=== PATIENT | male | born 1965 | race Caucasian/White ===

== ENCOUNTER 2017-02-23 10:54 | Inpatient (IN) | payer OTHER ==
[2017-02-23 11:29] VITALS: BMI 25.0
--- NOTE | 2017-02-23 11:55 | HP ---
CIWA Score - CIWA Score Nausea/Vomitin Muscle Tremors: 3 Anxiety: 4-Mod. Anxious/Guarded Agitation: 1-Slight > Activity Paroxysmal Sweats: 1-Minimal Palms Moist Orientation: 2-Disoriented Date<2 days Tacttile Disturbances: 0-None Auditory Disturbances: 1-Very Mild Visual Disturbances: 1-Very Mild Sensitivity Headache: 1-Very Mild CIWA-Ar Total Score: 17 Admission ROS BHS - HPI Chief Complaint: I drink too much, I need to change, I spend too much money Allergies/Adverse Reactions: Allergies Allergy/AdvReac Type Severity Reaction Status Date / Time No Known Allergies Allergy Verified 02/23/17 11:46 History of Present Illness: 51 yo gentleman here for detox from alcohol - states first time ever in detox - he is from [place] here since 1979. Denies seizures but occasional black outs. Homeless. Exam Limitations: Clinical Condition - Ebola screening Have you traveled outside of the country in the last 21 days: No Have you had contact with anyone from an Ebola affected area: No Have you been sick,other than usual withdrawal symptoms: No Do you have a fever: No - Review of Systems Constitutional: Loss of Appetite, Malaise, Night Sweats, Changes in sleep, Weakness EENT: reports: No Symptoms Reported Respiratory: reports: Cough Cardiac: reports: No Symptoms Reported GI: reports: Nausea, Indigestion : reports: Frequency Musculoskeletal: reports: No Symptoms Reported Integumentary: reports: Dryness Neuro: reports: Headache Endocrine: reports: No Symptoms Reported Hematology: reports: No Symptoms Reported Psychiatric: reports: Judgement Intact, Mood/Affect Appropiate Other Systems: Reviewed and Negative Patient History - Patient Medical History Hx Anemia: No Hx Asthma: No Hx Chronic Obstructive Pulmonary Disease (COPD): No Hx Cancer: No Hx Cardiac Disorders: No Hx Congestive Heart Failure: No Hx Hypertension: No Hx Hypercholesterolemia: No Hx Pacemaker: No HX Cerebrovascular Accident: No Hx Seizures: No Hx Dementia: No Hx Diabetes: No Hx Gastrointestinal Disorders: No Hx Liver Disease: No Hx Genitourinary Disorders: No Hx Sexually Transmitted Disorders: No Hx Renal Disease (ESRD): No Hx Thyroid Disease: No Hx Human Immunodeficiency Virus (HIV): Yes (on meds, does not know tcells) Hx Hepatitis C: No Hx Depression: No (denies) Hx Suicide Attempt: No (denies) Hx Bipolar Disorder: No Hx Schizophrenia: No (denies) - Patient Surgical History Past Surgical History: No - PPD History Previous Implant?: Yes Documented Results: Negative w/o proof PPD to be Administered?: Yes - Reproductive History Patient is a Female of Child Bearing Age (11 -55 yrs old): No (male) - Smoking Cessation Smoking history: Current every day smoker Have you smoked in the past 12 months: Yes Aproximately how many cigarettes per day: 40 Initiated information on smoking cessation: Yes 'Breaking Loose' booklet given: 02/23/17 (give on floor) - Substance & Tx. History Hx Alcohol Use: Yes Hx Substance Use: Yes Substance Use Type: Alcohol, Marijuana Hx Substance Use Treatment: Yes (states NEVER) - Substances Abused Alcohol Route: Oral Frequency: Daily Amount used: 2 pints, 12 beers 24 oz Age of first use: 12 Date of Last Use: 02/22/17 Marijuana/Hashish Route: Smoking Frequency: Daily Amount used: 2 joints Age of first use: 14 Date of Last Use: 02/22/17 Cocaine Route: Inhalation Frequency: 3-6 times per week Amount used: $50 Age of first use: 15 Date of Last Use: 02/21/17 Family Disease History - Family Disease History Family Disease History: Diabetes: Mother (, ), Heart Disease: Father ( living in [place]), Other: Father, Mother, Brother (two in [place]), Sister (two in [place]) Admission Physical Exam [facility] - Vital Signs Vital Signs: Vital Signs - 24 hr 02/23/17 11:23 Temperature 97.2 F L Pulse Rate 66 Respiratory 20 Rate Blood Pressure 114/65 - Physical General Appearance: Yes: Nourished, Appropriately Dressed, Disheveled, Mild Distress HEENTM: Yes: Hearing grossly Normal, Normocephalic, Normal Voice, Pharynx Normal , Other (eyes 'rheumy') Respiratory: Yes: Normal Breath Sounds, No Respiratory Distress Neck: Yes: No masses,lesions,Nodules, Supple Breast: Yes: Breast Exam Deferred Cardiology: Yes: Regular Rhythm, Regular Rate Abdominal: Yes: Non Tender, Flat Genitourinary: Yes: Frequency Back: Yes: Within Normal Limits, Normal Inspection Musculoskeletal: Yes: full range of Motion, Gait Steady Extremities: Yes: Normal Inspection, Non-Tender Neurological: Yes: Alert, Normal Mood/Affect, Normal Response Integumentary: Yes: Normal Color, Dry, Warm Lymphatic: Yes: Within Normal Limits - Diagnostic (1) Alcohol dependence with uncomplicated withdrawal Current Visit: Yes Status: Chronic (2) Marijuana dependence Current Visit: Yes Status: Chronic (3) HIV (human immunodeficiency virus infection) Current Visit: Yes Status: Chronic (4) Nicotine dependence Current Visit: Yes Status: Chronic Qualifiers: Nicotine product type: cigarettes Substance use status: uncomplicated Qualified Code(s): F17.210 - Nicotine dependence, cigarettes, uncomplicated Cleared for Admission [facility] - Detox or Rehab [facility] Level of Care: Medically Managed Detox Regimen/Protocol: Librium [facility] Breath Alcohol Content Breath Alcohol Content: 0 Urine Drug Screen - Results Drug Screen Negative: No Urine Drug Screen Results: NOLVIA-Cocaine
[2017-02-23] MEDS ORDERED: IBUPROFEN 400 MG TABLET (FP) PO PRN (12:06)
[2017-02-23] MEDS ORDERED: guaiFENesin/D-METHORPHAN HB 10 ML UNIT-DOSE CUPS PO PRN (12:06)
[2017-02-23] MEDS ORDERED: MENTHOL/PHENOL 1 EACH UD MM PRN (12:06)
[2017-02-23] MEDS ORDERED: NICOTINE POLACRILEX 4 MG GUM BUC PRN (12:06)
[2017-02-23] MEDS ORDERED: MAGNESIUM HYDROX 2400MG/30ML ORAL SUSPENSION 30 ML CUP PO PRN (12:06)
[2017-02-23] MEDS ORDERED: chlordiazePOXIDE HCL 25 MG CAPSULE PO PRN (12:06)
[2017-02-23] MEDS ORDERED: P-EPHED 60MG/TRIPROLIDI 2.5MG TABLET PO PRN (12:06)
[2017-02-23] MEDS ORDERED: ACETAMINOPHEN 325 MG TABLET (FP) PO PRN (12:06)
[2017-02-23] MEDS ORDERED: MAGNESIUM CITRATE 300 ML BOTTLE PO PRN (12:06)
[2017-02-23] MEDS ORDERED: MAG HYDROX/AL HYDROX/SIMETH 30 ML UNIT-DOSE CUP PO PRN (12:06)
[2017-02-23] MEDS ORDERED: LOPERAMIDE HCL 2 MG CAPSULE PO PRN (12:06)
[2017-02-23] MEDS ORDERED: hydrOXYzine PAMOATE 50 MG CAPSULE (FP) PO PRN (12:06)
[2017-02-23] MEDS ORDERED: PATIENT'S OWN MEDICATION (NON-FORMULARY) (Efavirenz/Emtricitab/Tenofovir 1 TAB) PO SCH (12:15)
[2017-02-23] MEDS ORDERED: chlordiazePOXIDE HCL 25 MG CAPSULE PO ONE (13:15)
[2017-02-23] MEDS ORDERED: EFAVIRENZ 600 MG TABLET PO ONE (13:30)
[2017-02-23] MEDS ORDERED: EMTRICITABINE 200MG/TENOFOVIR 300MG PO ONE (13:30)
[2017-02-23] MEDS: NICOTINE 21 MG/24 HOURS TOPICAL PATCH TD SCH (14:52)
[2017-02-23 15:29] LABS: URINE APPEARANCE CLEAR; URINE BILIRUBIN NEGATIVE (NEGATIVE); URINE BLOOD NEGATIVE (NEGATIVE); URINE COLOR YELLOW; URINE GLUCOSE (UA) NEGATIVE (NEGATIVE); URINE KETONE NEGATIVE (NEGATIVE); URINE LEUK ESTERASE NEGATIVE (NEGATIVE); URINE NITRITE NEGATIVE (NEGATIVE); URINE PROTEIN NEGATIVE (NEGATIVE); URINE UROBILINOGEN NEGATIVE mg/dL (0.2-1.0)
[2017-02-23] MEDS: chlordiazePOXIDE HCL 25 MG CAPSULE PO SCH ×2 (18:14→22:15)
[2017-02-23 19:21] LABS: URINE LEUK ESTERASE Negative (NEGATIVE)
[2017-02-23] MEDS: THIAMINE HCL 100 MG TABLET (FP) PO SCH (22:15)
[2017-02-24] MEDS: chlordiazePOXIDE HCL 25 MG CAPSULE PO SCH ×4 (06:03→22:32)
[2017-02-24] MEDS ORDERED: EMTRICITABINE 200MG/TENOFOVIR 300MG PO SCH (10:00)
[2017-02-24] MEDS ORDERED: EFAVIRENZ 600 MG TABLET PO SCH (10:00)
[2017-02-24] MEDS: PRENATAL VITAMINS W/ FOLIC ACID TABLET (FP) PO SCH (10:11)
[2017-02-24] MEDS: NICOTINE 21 MG/24 HOURS TOPICAL PATCH TD SCH (10:13)
--- NOTE | 2017-02-24 10:23 | PN ---
S CIWA - CIWA Score Nausea/Vomitin-Mild Nausea/No Vomiting Muscle Tremors: 4-Moderate,w/Arms Extend Anxiety: 3 Agitation: 3 Paroxysmal Sweats: 1-Minimal Palms Moist Orientation: 0-Oriented Tacttile Disturbances: 0-None Auditory Disturbances: 0-None Visual Disturbances: 0-None Headache: 0-None Present CIWA-Ar Total Score: 12 BHS Progress Note (SOAP) Subjective: nausea tremor anxiety sweat Objective: 02/24/17 10:22 Vital Signs Temperature 97.9 F 02/24/17 06:00 Pulse Rate 66 02/24/17 06:00 Respiratory Rate 16 02/24/17 06:00 Blood Pressure 116/73 02/24/17 06:00 O2 Sat by Pulse Oximetry (%) Laboratory Last Values Urine Color Yellow 02/23/17 15:13 Urine Appearance Clear 02/23/17 15:13 Urine pH 5.0 (5.0-8.0) 02/23/17 15:13 Ur Specific [place] 1.024 (1.001-1.035) 02/23/17 15:13 Urine Protein Negative (NEGATIVE) 02/23/17 15:13 Urine Glucose (UA) Negative (NEGATIVE) 02/23/17 15:13 Urine Ketones Negative (NEGATIVE) 02/23/17 15:13 Urine Blood Negative (NEGATIVE) 02/23/17 15:13 Urine Nitrite Negative (NEGATIVE) 02/23/17 15:13 Urine Bilirubin Negative (NEGATIVE) 02/23/17 15:13 Urine Urobilinogen Negative mg/dL (0.2-1.0) 02/23/17 15:13 Ur Leukocyte Esterase Negative (NEGATIVE) 02/23/17 15:13 lab noted Assessment: 02/24/17 10:22 withdrawal sx Plan: continue detox
--- NOTE | 2017-02-24 10:44 | PN ---
[facility] Progress Note Note: Patient seen at bedside, somewhat drowsy but able to refuse evaluation saying;" no tengo problema de micky mental"
[2017-02-24 10:54] LABS: ALBUMIN 2.8 g/dl (3.4-5.0); ALK PHOS 105 U/L (45-117); ANION GAP 7 (8-16); BILIRUBIN,TOTAL 0.6 mg/dL (0.2-1.0); CALCIUM 7.9 mg/dL (8.5-10.1); CO2 23 mmol/L (21-32); CREATININE 0.8 mg/dL (0.7-1.3); GLUCOSE,RANDOM 82 mg/dL (74-106); SGOT/AST 16 U/L (15-37); SGPT/ALT 19 U/L (12-78); TOT PROT 6.1 g/dl (6.4-8.2)
[2017-02-24 11:32] LABS: MCH 30.9 pg (25.7-33.7); MCHC 31.9 g/dl (32.0-35.9); MEAN CELL VOLUME 96.7 fl (80-96); MEAN PLT VOLUME 8.9 fl (7.5-11.1); PLATELET COUNT 233 K/MM3 (134-434); RDW 12.6 % (11.9-15.9); WHITE BLOOD COUNT 4.9 K/mm3 (4.0-10.0)
[2017-02-24] MEDS: EFAVIRENZ 600 MG TABLET PO SCH (22:32)
[2017-02-24] MEDS: EMTRICITABINE 200MG/TENOFOVIR 300MG PO SCH (22:32)
[2017-02-24] MEDS: THIAMINE HCL 100 MG TABLET (FP) PO SCH (22:32)
[2017-02-25] MEDS: chlordiazePOXIDE HCL 25 MG CAPSULE PO SCH ×2 (05:49→11:25)
--- NOTE | 2017-02-25 10:30 | PN ---
[facility] CIWA - CIWA Score Nausea/Vomitin-No Nausea/No Vomiting Muscle Tremors: 3 Anxiety: 3 Agitation: 4-Moderately Restless Paroxysmal Sweats: 3 Orientation: 0-Oriented Tacttile Disturbances: 0-None Auditory Disturbances: 0-None Visual Disturbances: 0-None Headache: 0-None Present CIWA-Ar Total Score: 13 S Progress Note (SOAP) Subjective: irritable agitation anxiety interrupted sleep sweats Objective: 02/25/17 10:29 Vital Signs Temperature 97.2 F L 02/25/17 06:29 Pulse Rate 77 02/25/17 06:29 Respiratory Rate 18 02/25/17 06:29 Blood Pressure 118/75 02/25/17 06:29 O2 Sat by Pulse Oximetry (%) Laboratory Tests 02/23/17 02/24/17 02/24/17 15:13 07:30 07:30 WBC 4.9 RBC 4.21 Hgb 13.0 Hct 40.8 MCV 96.7 H MCH 30.9 MCHC 31.9 L RDW 12.6 Plt Count 233 MPV 8.9 Sodium 142 Potassium 4.1 Chloride 112 H Carbon Dioxide 23 Anion Gap 7 L BUN 11 Creatinine 0.8 Creat Clearance w eGFR > 60 Random Glucose 82 Calcium 7.9 L Total Bilirubin 0.6 AST 16 ALT 19 Alkaline Phosphatase 105 Total Protein 6.1 L Albumin 2.8 L Urine Color Yellow Urine Appearance Clear Urine pH 5.0 Ur Specific [place] 1.024 Urine Protein Negative Urine Glucose (UA) Negative Urine Ketones Negative Urine Blood Negative Urine Nitrite Negative Urine Bilirubin Negative Urine Urobilinogen Negative Ur Leukocyte Esterase Negative RPR Titer 02/24/17 07:30 WBC RBC Hgb Hct MCV MCH MCHC RDW Plt Count MPV Sodium Potassium Chloride Carbon Dioxide Anion Gap BUN Creatinine Creat Clearance w eGFR Random Glucose Calcium Total Bilirubin AST ALT Alkaline Phosphatase Total Protein Albumin Urine Color Urine Appearance Urine pH Ur Specific [place] Urine Protein Urine Glucose (UA) Urine Ketones Urine Blood Urine Nitrite Urine Bilirubin Urine Urobilinogen Ur Leukocyte Esterase RPR Titer Nonreactive aaox3 lying in bed no acute distress Assessment: 02/25/17 10:30 withdrawal sx Plan: continue detox increase fluids labs pending
[2017-02-25] MEDS: PRENATAL VITAMINS W/ FOLIC ACID TABLET (FP) PO SCH (11:25)
[2017-02-25] MEDS: NICOTINE 21 MG/24 HOURS TOPICAL PATCH TD SCH (11:26)
[2017-02-25] MEDS: chlordiazePOXIDE 5 MG CAPSULE PO SCH ×2 (17:18→22:20)
[2017-02-25] MEDS: THIAMINE HCL 100 MG TABLET (FP) PO SCH (22:20)
[2017-02-25] MEDS: EMTRICITABINE 200MG/TENOFOVIR 300MG PO SCH (22:20)
[2017-02-25] MEDS: EFAVIRENZ 600 MG TABLET PO SCH (22:20)
--- NOTE | 2017-02-26 01:57 | EKG ---
Test Reason : Blood Pressure : / mmHG Vent. Rate : 067 BPM Atrial Rate : 067 BPM P-R Int : 130 ms QRS Dur : 078 ms QT Int : 414 ms P-R-T Axes : -13 037 043 degrees QTc Int : 437 ms NORMAL SINUS RHYTHM NORMAL ECG NO PREVIOUS ECGS AVAILABLE Confirmed by CHELI CALVO MD ([id number]) on 02/26/2017 1:56:40 AM Referred By: Confirmed By:CHELI CALVO MD
[2017-02-26] MEDS: chlordiazePOXIDE 5 MG CAPSULE PO SCH ×2 (06:47→10:12)
[2017-02-26] MEDS: NICOTINE 21 MG/24 HOURS TOPICAL PATCH TD SCH (10:12)
[2017-02-26] MEDS: PRENATAL VITAMINS W/ FOLIC ACID TABLET (FP) PO SCH (10:12)
--- NOTE | 2017-02-26 10:14 | PN ---
BHS Progress Note (SOAP) Subjective: sweats shakes interrupted sleep Objective: 02/26/17 10:12 Vital Signs Temperature 97.5 F L 02/26/17 06:16 Pulse Rate 79 02/26/17 06:16 Respiratory Rate 18 02/26/17 06:16 Blood Pressure 131/90 02/26/17 06:16 O2 Sat by Pulse Oximetry (%) aaox3 ambulating no acute distress Assessment: 02/26/17 10:14 withdrawal sx Plan: continue detox increase fluids d/c in am
[2017-02-26 10:25] VITALS: BP 136/96; PULSE 98; TEMP 96.8
--- NOTE | 2017-02-26 10:50 | DS ---
[facility] Detox Discharge Summary Admission Date: 02/23/17 - History Present History: Alcohol Dependence - Physical Exam Results Vital Signs: Vital Signs Temperature 96.8 F L 02/26/17 10:25 Pulse Rate 98 H 02/26/17 10:25 Respiratory Rate 18 02/26/17 10:25 Blood Pressure 136/96 02/26/17 10:25 O2 Sat by Pulse Oximetry (%) - Treatment Hospital Course: Discharged Condition Good - Medication Discharge Medications: Ambulatory Orders Efavirenz/Emtricitab/Tenofovir [Atripla -] 1 tab PO DAILY 02/23/17 - Diagnosis (1) Alcohol dependence with uncomplicated withdrawal Current Visit: Yes Status: Chronic (2) HIV (human immunodeficiency virus infection) Current Visit: Yes Status: Chronic (3) Marijuana dependence Current Visit: Yes Status: Chronic (4) Nicotine dependence Current Visit: Yes Status: Chronic Qualifiers: Nicotine product type: cigarettes Substance use status: uncomplicated Qualified Code(s): F17.210 - Nicotine dependence, cigarettes, uncomplicated - AMA Did Patient Leave Against Medical Advice: Yes
--- NOTE | 2017-02-26 10:50 | PN ---
[facility] Progress Note Note: pt became irrate, threatening, states "give me my fucken clothes you bitch." I want to get the fuck out. security called pt refused to sign ama and pt escorted off the unit.
[2017-02-26] MEDS ORDERED: chlordiazePOXIDE HCL 10 MG CAPSULE PO SCH (17:00)
== END 2017-02-26 11:00 | disposition left against medical advice (07) | DRG 770 ==
LOC: YASAS 10:54 → Y6N 12:57
PROVIDERS: ADMIT Internal Medicine; ATTEND Internal Medicine
PROC: HZ2ZZZZ Detoxification Services for Substance Abuse Treatment (ICD-10-PCS; principal; 2017-02-23)
DX: F10.230 Alcohol dependence with withdrawal, uncomplicated (principal); F12.20 Cannabis dependence, uncomplicated; F17.210 Nicotine dependence, cigarettes, uncomplicated; Z21 Asymptomatic human immunodeficiency virus [HIV] infection status
CPT/HCPCS: 36415; 80053; 81003; 85027; 86593; 93005; 93010

== ENCOUNTER 2017-03-16 10:27 | Inpatient (IN) | payer OTHER ==
[2017-03-16 11:14] VITALS: BMI 25.8
--- NOTE | 2017-03-16 11:20 | HP ---
CIWA Score - CIWA Score Nausea/Vomitin-Mild Nausea/No Vomiting Muscle Tremors: 4-Moderate,w/Arms Extend Anxiety: 4-Mod. Anxious/Guarded Agitation: 1-Slight > Activity Paroxysmal Sweats: 1-Minimal Palms Moist Orientation: 0-Oriented Tacttile Disturbances: 0-None Auditory Disturbances: 0-None Visual Disturbances: 0-None Headache: 2-Mild CIWA-Ar Total Score: 13 Admission ROS BHS - HPI Chief Complaint: I want to no more drinking, it is killing me Allergies/Adverse Reactions: Allergies Allergy/AdvReac Type Severity Reaction Status Date / Time No Known Allergies Allergy Verified 03/16/17 12:05 History of Present Illness: 52 yo gentleman here for detox from alcohol - left here 02/23/17 - AMA - states 'someone was not nice to me' but states he will stay this time and complete treatment. Denies seizures but does have black outs. Homeless. Poor adherence to HIV meds, does not know Tcells - asking for blood work to be done to check but I explained this is done outpatient. Exam Limitations: No Limitations - Ebola screening Have you traveled outside of the country in the last 21 days: No Have you had contact with anyone from an Ebola affected area: No Have you been sick,other than usual withdrawal symptoms: No - Review of Systems Constitutional: Loss of Appetite, Malaise, Changes in sleep EENT: reports: Nose Congestion Respiratory: reports: No Symptoms reported Cardiac: reports: No Symptoms Reported GI: reports: Poor Appetite : reports: Frequency Musculoskeletal: reports: No Symptoms Reported Integumentary: reports: Dryness Neuro: reports: Headache Endocrine: reports: No Symptoms Reported Hematology: reports: No Symptoms Reported Psychiatric: reports: Judgement Intact, Mood/Affect Appropiate Other Systems: Reviewed and Negative Patient History - Patient Medical History Hx Anemia: No Hx Asthma: No Hx Chronic Obstructive Pulmonary Disease (COPD): No Hx Cancer: No Hx Cardiac Disorders: No Hx Congestive Heart Failure: No Hx Hypertension: No Hx Hypercholesterolemia: No Hx Pacemaker: No HX Cerebrovascular Accident: No Hx Seizures: No Hx Dementia: No Hx Diabetes: No Hx Gastrointestinal Disorders: No Hx Liver Disease: No Hx Genitourinary Disorders: No Hx Sexually Transmitted Disorders: Yes (HIV POS) Hx Renal Disease (ESRD): No Hx Thyroid Disease: No Hx Human Immunodeficiency Virus (HIV): Yes (on meds, does not know tcells) Hx Hepatitis C: No Hx Depression: No (denies) Hx Suicide Attempt: No (denies) Hx Bipolar Disorder: No Hx Schizophrenia: No (denies) - Patient Surgical History Past Surgical History: No Hx Neurologic Surgery: No Hx Cataract Extraction: No Hx Cardiac Surgery: No Hx Lung Surgery: No Hx Breast Surgery: No Hx Breast Biopsy: No Hx Abdominal Surgery: No Hx Appendectomy: No Hx Cholecystectomy: No Hx Genitourinary Surgery: No Hx Section: No Hx Orthopedic Surgery: No Anesthesia Reaction: No - PPD History Previous Implant?: Yes Implanted On Prior R Admission?: No Date: 02/25/17 PPD to be Administered?: No - Reproductive History Patient is a Female of Child Bearing Age (11 -55 yrs old): No (male) - Smoking Cessation Smoking history: Current every day smoker Have you smoked in the past 12 months: Yes Aproximately how many cigarettes per day: 20 Hx Chewing Tobacco Use: No Initiated information on smoking cessation: Yes 'Breaking Loose' booklet given: 03/16/17 (give on floor) - Substance & Tx. History Hx Alcohol Use: Yes Hx Substance Use: Yes Substance Use Type: Alcohol, Cocaine, Marijuana Hx Substance Use Treatment: Yes (detox) - Substances Abused Alcohol Route: Oral Frequency: Daily Amount used: 2 pints rum Age of first use: 10 Date of Last Use: 03/15/17 Crack Route: Smoking Frequency: Daily Amount used: $50 Age of first use: 32 Date of Last Use: 03/15/17 Marijuana/Hashish Route: Smoking Frequency: Daily Amount used: 2 blunts Age of first use: 10 Date of Last Use: 03/15/17 Family Disease History - Family Disease History Family Disease History: Diabetes: Mother (, ), Heart Disease: Father ( living in [place]), Other: Father, Mother, Brother (two in [place]), Sister (two in [place]) Admission Physical Exam S - Vital Signs Vital Signs: Vital Signs - 24 hr 03/16/17 11:08 Temperature 97.0 F L Pulse Rate 86 Respiratory 18 Rate Blood Pressure 146/86 - Physical General Appearance: Yes: Nourished, Appropriately Dressed, Disheveled, Mild Distress, Thin, Irritable HEENTM: Yes: Hearing grossly Normal, Normocephalic, Normal Voice, Pharynx Normal Respiratory: Yes: Normal Breath Sounds, No Respiratory Distress Neck: Yes: No masses,lesions,Nodules, Supple Breast: Yes: Breast Exam Deferred Cardiology: Yes: Regular Rhythm, Regular Rate Abdominal: Yes: Flat Genitourinary: Yes: Frequency Back: Yes: Normal Inspection Musculoskeletal: Yes: full range of Motion, Gait Steady Extremities: Yes: Normal Inspection, Non-Tender Neurological: Yes: Alert, Motor Strength 5/5, Normal Mood/Affect, Normal Response Integumentary: Yes: Normal Color, Warm Lymphatic: Yes: Within Normal Limits - Diagnostic (1) Alcohol dependence with uncomplicated withdrawal Current Visit: Yes Status: Chronic (2) Crack cocaine use Current Visit: Yes Status: Chronic (3) Marijuana dependence Current Visit: Yes Status: Chronic (4) HIV (human immunodeficiency virus infection) Current Visit: Yes Status: Chronic (5) Nicotine dependence Current Visit: Yes Status: Chronic Qualifiers: Nicotine product type: cigarettes Substance use status: uncomplicated Qualified Code(s): F17.210 - Nicotine dependence, cigarettes, uncomplicated Cleared for Admission [facility] - Detox or Rehab [facility] Level of Care: Medically Managed Detox Regimen/Protocol: Librium [facility] Breath Alcohol Content Breath Alcohol Content: 0 Urine Drug Screen - Results Drug Screen Negative: No Urine Drug Screen Results: THC-Marijuana, NOLVIA-Cocaine
[2017-03-16] MEDS ORDERED: MAGNESIUM CITRATE 300 ML BOTTLE PO PRN (11:48)
[2017-03-16] MEDS ORDERED: chlordiazePOXIDE HCL 25 MG CAPSULE PO ONE (11:48)
[2017-03-16] MEDS ORDERED: chlordiazePOXIDE HCL 25 MG CAPSULE PO PRN (11:48)
[2017-03-16] MEDS ORDERED: hydrOXYzine PAMOATE 50 MG CAPSULE (FP) PO PRN (11:48)
[2017-03-16] MEDS ORDERED: MAGNESIUM HYDROX 2400MG/30ML ORAL SUSPENSION 30 ML CUP PO PRN (11:48)
[2017-03-16] MEDS ORDERED: IBUPROFEN 400 MG TABLET (FP) PO PRN (11:48)
[2017-03-16] MEDS ORDERED: P-EPHED 60MG/TRIPROLIDI 2.5MG TABLET PO PRN (11:48)
[2017-03-16] MEDS ORDERED: ACETAMINOPHEN 325 MG TABLET (FP) PO PRN (11:48)
[2017-03-16] MEDS ORDERED: LOPERAMIDE HCL 2 MG CAPSULE PO PRN (11:48)
[2017-03-16] MEDS ORDERED: guaiFENesin/D-METHORPHAN HB 10 ML UNIT-DOSE CUPS PO PRN (11:48)
[2017-03-16] MEDS ORDERED: MENTHOL/PHENOL 1 EACH UD MM PRN (11:48)
[2017-03-16] MEDS ORDERED: MAG HYDROX/AL HYDROX/SIMETH 30 ML UNIT-DOSE CUP PO PRN (11:48)
[2017-03-16] MEDS ORDERED: PATIENT'S OWN MEDICATION (NON-FORMULARY) (Efavirenz/Emtricitab/Tenofovir 1 TAB) PO SCH (12:00)
[2017-03-16] MEDS: NICOTINE 21 MG/24 HOURS TOPICAL PATCH TD SCH (13:36)
[2017-03-16] MEDS: EMTRICITABINE 200MG/TENOFOVIR 300MG PO SCH (15:33)
[2017-03-16] MEDS: EFAVIRENZ 600 MG TABLET PO SCH (15:33)
[2017-03-16] MEDS: chlordiazePOXIDE HCL 25 MG CAPSULE PO SCH ×2 (17:39→22:49)
[2017-03-16 22:14] LABS: URINE APPEARANCE CLOUDY; URINE BILIRUBIN NEGATIVE (NEGATIVE); URINE BLOOD NEGATIVE (NEGATIVE); URINE COLOR DKYELLOW; URINE GLUCOSE (UA) NEGATIVE (NEGATIVE); URINE KETONE NEGATIVE (NEGATIVE); URINE LEUK ESTERASE NEGATIVE (NEGATIVE); URINE NITRITE NEGATIVE (NEGATIVE); URINE PROTEIN NEGATIVE (NEGATIVE)
[2017-03-16] MEDS: THIAMINE HCL 100 MG TABLET (FP) PO SCH (22:49)
[2017-03-17] MEDS: chlordiazePOXIDE HCL 25 MG CAPSULE PO SCH ×4 (05:44→22:13)
[2017-03-17 10:07] LABS: HEMATOCRIT 42.8 % (35.4-49); HEMOGLOBIN 13.7 GM/dL (11.7-16.9); MCH 30.3 pg (25.7-33.7); MCHC 31.9 g/dl (32.0-35.9); MEAN CELL VOLUME 94.9 fl (80-96); MEAN PLT VOLUME 8.6 fl (7.5-11.1); PLATELET COUNT 218 K/MM3 (134-434); RBC 4.51 M/mm3 (4.00-5.60); RDW 12.6 % (11.9-15.9); WHITE BLOOD COUNT 5.2 K/mm3 (4.0-10.0)
[2017-03-17] MEDS: EMTRICITABINE 200MG/TENOFOVIR 300MG PO SCH (10:12)
[2017-03-17] MEDS: EFAVIRENZ 600 MG TABLET PO SCH (10:12)
[2017-03-17] MEDS: PRENATAL VITAMINS W/ FOLIC ACID TABLET (FP) PO SCH (10:12)
[2017-03-17] MEDS: NICOTINE 21 MG/24 HOURS TOPICAL PATCH TD SCH (10:14)
[2017-03-17 10:24] LABS: ALBUMIN 2.9 g/dl (3.4-5.0); ANION GAP 6 (8-16); BLOOD UREA NITROGEN 13 mg/dL (7-18); CALCIUM 8.2 mg/dL (8.5-10.1); CHLORIDE 107 mmol/L (98-107); CO2 28 mmol/L (21-32); CREATININE 0.9 mg/dL (0.7-1.3); GLUCOSE,RANDOM 81 mg/dL (74-106); POTASSIUM 4.1 mmol/L (3.5-5.1); SGOT/AST 23 U/L (15-37); SGPT/ALT 22 U/L (12-78); SODIUM 141 mmol/L (136-145)
[2017-03-17 10:26] LABS: ALK PHOS 114 U/L (45-117); BILIRUBIN,TOTAL 0.6 mg/dL (0.2-1.0); TOT PROT 6.2 g/dl (6.4-8.2)
--- NOTE | 2017-03-17 11:39 | EKG ---
Test Reason : Blood Pressure : / mmHG Vent. Rate : 077 BPM Atrial Rate : 077 BPM P-R Int : 142 ms QRS Dur : 098 ms QT Int : 404 ms P-R-T Axes : 041 027 061 degrees QTc Int : 457 ms NORMAL SINUS RHYTHM WITH SINUS ARRHYTHMIA NONSPECIFIC ST AND T WAVE ABNORMALITY ABNORMAL ECG WHEN COMPARED WITH ECG OF 23-FEB-2017 14:42, NO SIGNIFICANT CHANGE WAS FOUND Confirmed by TRUMAN SORIANO, VIVIAN ([id number]) on 03/17/2017 11:39:21 AM Referred By: JODI ABDALLA Confirmed By:VIVIAN LAUGHLIN MD
--- NOTE | 2017-03-17 13:54 | PN ---
S CIWA - CIWA Score Nausea/Vomitin-No Nausea/No Vomiting Muscle Tremors: 3 Anxiety: 4-Mod. Anxious/Guarded Agitation: 4-Moderately Restless Paroxysmal Sweats: 3 Orientation: 0-Oriented Tacttile Disturbances: 0-None Auditory Disturbances: 0-None Visual Disturbances: 0-None Headache: 0-None Present CIWA-Ar Total Score: 14 BHS Progress Note (SOAP) Subjective: Anxiety,tremors,sweating,interrupted sleep,restless Objective: 03/17/17 13:53 Vital Signs - 8 hr 03/17/17 03/17/17 06:17 09:54 Temperature 96.7 F L 97.5 F L Pulse Rate 73 84 Respiratory 18 16 Rate Blood Pressure 131/82 133/88 Laboratory Tests 03/16/17 03/17/17 03/17/17 21:00 07:40 07:40 WBC 5.2 RBC 4.51 Hgb 13.7 Hct 42.8 MCV 94.9 MCH 30.3 MCHC 31.9 L RDW 12.6 Plt Count 218 MPV 8.6 Sodium 141 Potassium 4.1 Chloride 107 Carbon Dioxide 28 D Anion Gap 6 L BUN 13 Creatinine 0.9 Creat Clearance w eGFR > 60 Random Glucose 81 Calcium 8.2 L Total Bilirubin 0.6 AST 23 D ALT 22 Alkaline Phosphatase 114 Total Protein 6.2 L Albumin 2.9 L Urine Color Dkyellow Urine Appearance Cloudy Urine pH 5.0 Ur Specific [place] 1.025 Urine Protein Negative Urine Glucose (UA) Negative Urine Ketones Negative Urine Blood Negative Urine Nitrite Negative Urine Bilirubin Negative Urine Urobilinogen 2.0 Ur Leukocyte Esterase Negative RPR Titer 03/17/17 07:40 WBC RBC Hgb Hct MCV MCH MCHC RDW Plt Count MPV Sodium Potassium Chloride Carbon Dioxide Anion Gap BUN Creatinine Creat Clearance w eGFR Random Glucose Calcium Total Bilirubin AST ALT Alkaline Phosphatase Total Protein Albumin Urine Color Urine Appearance Urine pH Ur Specific [place] Urine Protein Urine Glucose (UA) Urine Ketones Urine Blood Urine Nitrite Urine Bilirubin Urine Urobilinogen Ur Leukocyte Esterase RPR Titer Nonreactive labs noted Assessment: 03/17/17 13:53 Withdrawal sx. Plan: Continue detox
[2017-03-17] MEDS: THIAMINE HCL 100 MG TABLET (FP) PO SCH (22:13)
[2017-03-18] MEDS: chlordiazePOXIDE HCL 25 MG CAPSULE PO SCH ×2 (06:04→10:14)
[2017-03-18] MEDS: EMTRICITABINE 200MG/TENOFOVIR 300MG PO SCH (10:13)
[2017-03-18] MEDS: EFAVIRENZ 600 MG TABLET PO SCH (10:13)
[2017-03-18] MEDS: PRENATAL VITAMINS W/ FOLIC ACID TABLET (FP) PO SCH (10:13)
[2017-03-18] MEDS: NICOTINE 21 MG/24 HOURS TOPICAL PATCH TD SCH (10:14)
--- NOTE | 2017-03-18 11:24 | PN ---
S CIWA - CIWA Score Nausea/Vomitin Muscle Tremors: 3 Anxiety: 4-Mod. Anxious/Guarded Agitation: 4-Moderately Restless Paroxysmal Sweats: 3 Orientation: 0-Oriented Tacttile Disturbances: 1-Very Mild Itch/Numbness Auditory Disturbances: 0-None Visual Disturbances: 0-None Headache: 0-None Present CIWA-Ar Total Score: 18 BHS Progress Note (SOAP) Subjective: Tremor, interrupted sleep, sweating Objective: 03/18/17 11:23 Last Vital Signs Temp Pulse Resp BP Pulse Ox 97.7 F 102 H 18 132/79 03/18/17 11:01 03/18/17 11:01 03/18/17 11:01 03/18/17 11:01 Laboratory Tests 03/16/17 03/17/17 03/17/17 21:00 07:40 07:40 WBC 5.2 RBC 4.51 Hgb 13.7 Hct 42.8 MCV 94.9 MCH 30.3 MCHC 31.9 L RDW 12.6 Plt Count 218 MPV 8.6 Sodium 141 Potassium 4.1 Chloride 107 Carbon Dioxide 28 D Anion Gap 6 L BUN 13 Creatinine 0.9 Creat Clearance w eGFR > 60 Random Glucose 81 Calcium 8.2 L Total Bilirubin 0.6 AST 23 D ALT 22 Alkaline Phosphatase 114 Total Protein 6.2 L Albumin 2.9 L Urine Color Dkyellow Urine Appearance Cloudy Urine pH 5.0 Ur Specific [place] 1.025 Urine Protein Negative Urine Glucose (UA) Negative Urine Ketones Negative Urine Blood Negative Urine Nitrite Negative Urine Bilirubin Negative Urine Urobilinogen 2.0 Ur Leukocyte Esterase Negative RPR Titer 03/17/17 07:40 WBC RBC Hgb Hct MCV MCH MCHC RDW Plt Count MPV Sodium Potassium Chloride Carbon Dioxide Anion Gap BUN Creatinine Creat Clearance w eGFR Random Glucose Calcium Total Bilirubin AST ALT Alkaline Phosphatase Total Protein Albumin Urine Color Urine Appearance Urine pH Ur Specific [place] Urine Protein Urine Glucose (UA) Urine Ketones Urine Blood Urine Nitrite Urine Bilirubin Urine Urobilinogen Ur Leukocyte Esterase RPR Titer Nonreactive Labs noted Assessment: 03/18/17 11:23 Withdrawal symptoms Plan: Continue detox Encouraged to drink more water for hydration
[2017-03-18] MEDS ORDERED: chlordiazePOXIDE 5 MG CAPSULE PO SCH (17:00)
[2017-03-18 17:10] VITALS: BP 131/91; PULSE 76; TEMP 96.3
--- NOTE | 2017-03-18 21:08 | DS ---
[facility] Detox Discharge Summary Admission Date: 03/16/17 Discharge Date: 03/18/17 - History Present History: Alcohol Dependence Pertinent Past History: PATIENT INSISTS TO LEAVE THE FACILITY REFUSES TO FACE TO FACE WITH THE PROVIDER - Physical Exam Results Vital Signs: Vital Signs Temperature 96.3 F L 03/18/17 17:10 Pulse Rate 76 03/18/17 17:10 Respiratory Rate 18 03/18/17 17:10 Blood Pressure 131/91 03/18/17 17:10 O2 Sat by Pulse Oximetry (%) Pertinent Admission Physical Exam Findings: WITHDRAWAL SX Vital Signs Temperature 96.3 F L 03/18/17 17:10 Pulse Rate 76 03/18/17 17:10 Respiratory Rate 18 03/18/17 17:10 Blood Pressure 131/91 03/18/17 17:10 O2 Sat by Pulse Oximetry (%) Laboratory Last Values WBC 5.2 K/mm3 (4.0-10.0) 03/17/17 07:40 RBC 4.51 M/mm3 (4.00-5.60) 03/17/17 07:40 Hgb 13.7 GM/dL (11.7-16.9) 03/17/17 07:40 Hct 42.8 % (35.4-49) 03/17/17 07:40 MCV 94.9 fl (80-96) 03/17/17 07:40 MCH 30.3 pg (25.7-33.7) 03/17/17 07:40 MCHC 31.9 g/dl (32.0-35.9) L 03/17/17 07:40 RDW 12.6 % (11.9-15.9) 03/17/17 07:40 Plt Count 218 K/MM3 (134-434) 03/17/17 07:40 MPV 8.6 fl (7.5-11.1) 03/17/17 07:40 Sodium 141 mmol/L (136-145) 03/17/17 07:40 Potassium 4.1 mmol/L (3.5-5.1) 03/17/17 07:40 Chloride 107 mmol/L (98-107) 03/17/17 07:40 Carbon Dioxide 28 mmol/L (21-32) D 03/17/17 07:40 Anion Gap 6 (8-16) L 03/17/17 07:40 BUN 13 mg/dL (7-18) 03/17/17 07:40 Creatinine 0.9 mg/dL (0.7-1.3) 03/17/17 07:40 Creat Clearance w eGFR > 60 (>60) 03/17/17 07:40 Random Glucose 81 mg/dL (74-106) 03/17/17 07:40 Calcium 8.2 mg/dL (8.5-10.1) L 03/17/17 07:40 Total Bilirubin 0.6 mg/dL (0.2-1.0) 03/17/17 07:40 AST 23 U/L (15-37) D 03/17/17 07:40 ALT 22 U/L (12-78) 03/17/17 07:40 Alkaline Phosphatase 114 U/L (45-117) 03/17/17 07:40 Total Protein 6.2 g/dl (6.4-8.2) L 03/17/17 07:40 Albumin 2.9 g/dl (3.4-5.0) L 03/17/17 07:40 Urine Color Dkyellow 03/16/17 21:00 Urine Appearance Cloudy 03/16/17 21:00 Urine pH 5.0 (5.0-8.0) 03/16/17 21:00 Ur Specific [place] 1.025 (1.001-1.035) 03/16/17 21:00 Urine Protein Negative (NEGATIVE) 03/16/17 21:00 Urine Glucose (UA) Negative (NEGATIVE) 03/16/17 21:00 Urine Ketones Negative (NEGATIVE) 03/16/17 21:00 Urine Blood Negative (NEGATIVE) 03/16/17 21:00 Urine Nitrite Negative (NEGATIVE) 03/16/17 21:00 Urine Bilirubin Negative (NEGATIVE) 03/16/17 21:00 Urine Urobilinogen 2.0 mg/dL (0.2-1.0) 03/16/17 21:00 Ur Leukocyte Esterase Negative (NEGATIVE) 03/16/17 21:00 RPR Titer Nonreactive (NONREACTIVE) 03/17/17 07:40 LAB NOTED - Treatment Hospital Course: Detox Protocol Followed, Responded well - Medication Discharge Medications: Ambulatory Orders Efavirenz/Emtricitab/Tenofovir [Atripla -] 1 tab PO DAILY 02/23/17 - Diagnosis (1) Alcohol dependence with uncomplicated withdrawal Status: Acute (2) HIV (human immunodeficiency virus infection) Status: Chronic (3) Nicotine dependence Status: Acute Qualifiers: Nicotine product type: cigarettes Substance use status: in withdrawal Qualified Code(s): F17.213 - Nicotine dependence, cigarettes, with withdrawal - AMA Did Patient Leave Against Medical Advice: Yes
[2017-03-19] MEDS ORDERED: chlordiazePOXIDE HCL 10 MG CAPSULE PO SCH (17:00)
== END 2017-03-18 17:09 | disposition left against medical advice (07) | DRG 770 ==
LOC: YASAS 10:27 → Y3N 12:31
PROVIDERS: ADMIT Internal Medicine; ATTEND Internal Medicine
PROC: HZ2ZZZZ Detoxification Services for Substance Abuse Treatment (ICD-10-PCS; principal; 2017-03-16)
DX: F11.23 Opioid dependence with withdrawal (principal); F14.20 Cocaine dependence, uncomplicated; F12.20 Cannabis dependence, uncomplicated; F17.210 Nicotine dependence, cigarettes, uncomplicated; Z21 Asymptomatic human immunodeficiency virus [HIV] infection status
CPT/HCPCS: 36415; 80053; 81003; 85027; 86593; 93005; 93010

== ENCOUNTER 2017-04-25 14:03 | Inpatient (IN) | payer OTHER ==
[2017-04-25 14:54] VITALS: BMI 27.1
--- NOTE | 2017-04-25 17:25 | HP ---
CIWA Score - CIWA Score Nausea/Vomitin-Mild Nausea/No Vomiting Muscle Tremors: 4-Moderate,w/Arms Extend Anxiety: 4-Mod. Anxious/Guarded Agitation: 1-Slight > Activity Paroxysmal Sweats: 4-Forehead w/Sweat Beads Orientation: 0-Oriented Tacttile Disturbances: 1-Very Mild Itch/Numbness Auditory Disturbances: 0-None Visual Disturbances: 0-None Headache: 3-Moderate CIWA-Ar Total Score: 18 Admission ROS S - HPI Chief Complaint: withdrawal symptoms Allergies/Adverse Reactions: Allergies Allergy/AdvReac Type Severity Reaction Status Date / Time No Known Allergies Allergy Verified 04/25/17 17:27 History of Present Illness: 52 yo male with hx of cocaine / crack, nicotine and alcohol dependence. Currently smokes 1 1/2 packs of cigarettes per day. Past medical history HIV with poor adherence to medication (Atriptal) and insomnia, denies any other medical problems. Denies suicidal / homicidal ideation or suicide attempts. Longest period of sobriety 20 years. Last detox attempt at [facility] 03/16/17 -03/18/17 left AMA. - Ebola screening Have you traveled outside of the country in the last 21 days: No Have you had contact with anyone from an Ebola affected area: No Have you been sick,other than usual withdrawal symptoms: No Do you have a fever: No - Review of Systems Constitutional: Chills, Changes in sleep, Unintentional Wgt. Loss EENT: reports: Dental Problems (missing teeth) Respiratory: reports: No Symptoms reported Cardiac: reports: No Symptoms Reported GI: reports: Nausea : reports: No Symptoms Reported Musculoskeletal: reports: No Symptoms Reported Integumentary: reports: Pruritus Neuro: reports: Headache, Tingling (bilateral lower extremities) Endocrine: reports: Excessive Sweating Hematology: reports: No Symptoms Reported Psychiatric: reports: Orientated x3, Anxious Other Systems: Reviewed and Negative Patient History - Patient Medical History Hx Anemia: No Hx Asthma: No Hx Chronic Obstructive Pulmonary Disease (COPD): No Hx Cancer: No Hx Cardiac Disorders: No Hx Congestive Heart Failure: No Hx Hypertension: No Hx Hypercholesterolemia: No Hx Pacemaker: No HX Cerebrovascular Accident: No Hx Seizures: No Hx Dementia: No Hx Diabetes: No Hx Gastrointestinal Disorders: No Hx Liver Disease: No Hx Genitourinary Disorders: No Hx Sexually Transmitted Disorders: Yes (HIV POS since 1992) Hx Renal Disease (ESRD): No Hx Thyroid Disease: No Hx Human Immunodeficiency Virus (HIV): Yes (on meds, does not know tcells) Hx Hepatitis C: No Hx Depression: No (denies) Hx Suicide Attempt: No (denies) Hx Bipolar Disorder: No Hx Schizophrenia: No (denies) - Patient Surgical History Past Surgical History: No Hx Neurologic Surgery: No Hx Cataract Extraction: No Hx Cardiac Surgery: No Hx Lung Surgery: No Hx Breast Surgery: No Hx Breast Biopsy: No Hx Abdominal Surgery: No Hx Appendectomy: No Hx Cholecystectomy: No Hx Genitourinary Surgery: No Hx Section: No Hx Orthopedic Surgery: No Anesthesia Reaction: No - PPD History Previous Implant?: Yes Date: 02/25/17 PPD to be Administered?: No - Reproductive History Patient is a Female of Child Bearing Age (11 -55 yrs old): No - Smoking Cessation Smoking history: Current every day smoker Have you smoked in the past 12 months: Yes Aproximately how many cigarettes per day: 30 Hx Chewing Tobacco Use: No Initiated information on smoking cessation: Yes 'Breaking Loose' booklet given: 04/25/17 - Substance & Tx. History Hx Alcohol Use: Yes Substance Use Type: Alcohol, Cocaine, Marijuana Hx Substance Use Treatment: Yes ([facility] 03/16/17 -03/18/17) - Substances Abused Alcohol Route: Oral Frequency: Daily Amount used: 24 pack Age of first use: 9 Date of Last Use: 04/25/17 Cocaine Route: Smoking Frequency: 1-2 times per week Amount used: $80 - $100 Age of first use: 10 Date of Last Use: 04/25/17 Marijuana/Hashish Route: Smoking Frequency: Daily Amount used: 1 oz Age of first use: 10 Date of Last Use: 04/25/17 Family Disease History - Family Disease History Family Disease History: Diabetes: Mother (, ), Heart Disease: Father ( living in [place]), Other: Father, Mother, Brother (two in [place]), Sister (two in [place]) Admission Physical Exam S - Vital Signs Vital Signs: Vital Signs - 24 hr 04/25/17 14:45 Temperature 97.6 F Pulse Rate 81 Respiratory 18 Rate Blood Pressure 166/80 - Physical General Appearance: Yes: Disheveled, Mild Distress, Thin, Tremorous, Sweating, Anxious, Other (malodorous) HEENTM: Yes: EOMI, Hearing grossly Normal, Normal ENT Inspection, Normocephalic , Normal Voice, Pharynx Normal, Tm's normal, Nasal Congestion, Rhinorrhea, Other (poor dentation, dry mucous membranes) Respiratory: Yes: Chest Non-Tender, Lungs Clear, Normal Breath Sounds, No Respiratory Distress, No Accessory Muscle Use Neck: Yes: No masses,lesions,Nodules, Trachea in good position Breast: Yes: Breast Exam Deferred Cardiology: Yes: Regular Rhythm, Regular Rate, S1, S2 Abdominal: Yes: Normal Bowel Sounds, Non Tender, Flat, Soft Genitourinary: Yes: Within Normal Limits (reports no urinary symptoms) Back: Yes: Normal Inspection Musculoskeletal: Yes: full range of Motion, Gait Steady, Pelvis Stable Extremities: Yes: Normal Capillary Refill, Normal Inspection, Normal Range of Motion, Non-Tender Neurological: Yes: 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 intact, Fully Oriented, Alert, Motor Strength 5/5, Depressed Affect Integumentary: Yes: Normal Color, Dry, Warm, Rash (right arm) Lymphatic: Yes: Within Normal Limits - Diagnostic (1) Skin pruritus Current Visit: Yes Status: Acute (2) Alcohol dependence with uncomplicated withdrawal Current Visit: Yes Status: Acute (3) Nicotine dependence Current Visit: Yes Status: Chronic Qualifiers: Nicotine product type: cigarettes Substance use status: in withdrawal Qualified Code(s): F17.213 - Nicotine dependence, cigarettes, with withdrawal (4) Cocaine dependence Current Visit: Yes Status: Chronic (5) Crack cocaine use Current Visit: No Status: Chronic (6) HIV (human immunodeficiency virus infection) Current Visit: Yes Status: Chronic (7) Marijuana dependence Current Visit: Yes Status: Chronic (8) Dehydration Current Visit: Yes Status: Acute Cleared for Admission S - Detox or Rehab [facility] Level of Care: Medically Managed Detox Regimen/Protocol: Librium S Breath Alcohol Content Breath Alcohol Content: 0 Urine Drug Screen - Results Drug Screen Negative: No Urine Drug Screen Results: THC-Marijuana, NOLVIA-Cocaine
[2017-04-25] MEDS ORDERED: MENTHOL/PHENOL 1 EACH UD MM PRN (17:46)
[2017-04-25] MEDS ORDERED: MAGNESIUM HYDROX 2400MG/30ML ORAL SUSPENSION 30 ML CUP PO PRN (17:46)
[2017-04-25] MEDS ORDERED: guaiFENesin/D-METHORPHAN HB 10 ML UNIT-DOSE CUPS PO PRN (17:46)
[2017-04-25] MEDS ORDERED: ACETAMINOPHEN 325 MG TABLET (FP) PO PRN (17:46)
[2017-04-25] MEDS ORDERED: P-EPHED 60MG/TRIPROLIDI 2.5MG TABLET PO PRN (17:46)
[2017-04-25] MEDS ORDERED: IBUPROFEN 400 MG TABLET (FP) PO PRN (17:46)
[2017-04-25] MEDS ORDERED: chlordiazePOXIDE HCL 25 MG CAPSULE PO PRN (17:46)
[2017-04-25] MEDS ORDERED: MAG HYDROX/AL HYDROX/SIMETH 30 ML UNIT-DOSE CUP PO PRN (17:46)
[2017-04-25] MEDS ORDERED: NICOTINE POLACRILEX 4 MG GUM BC PRN (17:46)
[2017-04-25] MEDS ORDERED: LOPERAMIDE HCL 2 MG CAPSULE PO PRN (17:46)
[2017-04-25] MEDS ORDERED: MAGNESIUM CITRATE 300 ML BOTTLE PO PRN (17:46)
[2017-04-25] MEDS ORDERED: hydrOXYzine PAMOATE 50 MG CAPSULE (FP) PO PRN (17:46)
[2017-04-25] MEDS ORDERED: chlordiazePOXIDE HCL 25 MG CAPSULE PO ONE (18:30)
[2017-04-25] MEDS: chlordiazePOXIDE HCL 25 MG CAPSULE PO SCH ×2 (20:08→22:02)
[2017-04-25] MEDS: THIAMINE HCL 100 MG TABLET (FP) PO SCH (22:02)
[2017-04-25 23:27] LABS: URINE APPEARANCE CLEAR; URINE BILIRUBIN NEGATIVE (NEGATIVE); URINE BLOOD NEGATIVE (NEGATIVE); URINE COLOR YELLOW; URINE GLUCOSE (UA) 1+ (NEGATIVE); URINE KETONE NEGATIVE (NEGATIVE); URINE LEUK ESTERASE NEGATIVE (NEGATIVE); URINE NITRITE NEGATIVE (NEGATIVE); URINE PROTEIN NEGATIVE (NEGATIVE); URINE UROBILINOGEN NEGATIVE mg/dL (0.2-1.0)
[2017-04-26] MEDS: chlordiazePOXIDE HCL 25 MG CAPSULE PO SCH ×4 (05:41→22:26)
[2017-04-26 09:54] LABS: HEMATOCRIT 42.8 % (35.4-49); HEMOGLOBIN 13.4 GM/dL (11.7-16.9); MCH 29.8 pg (25.7-33.7); MCHC 31.3 g/dl (32.0-35.9); MEAN PLT VOLUME 8.4 fl (7.5-11.1); PLATELET COUNT 291 K/MM3 (134-434); RBC 4.51 M/mm3 (4.00-5.60); RDW 12.8 % (11.9-15.9); WHITE BLOOD COUNT 6.9 K/mm3 (4.0-10.0)
[2017-04-26] MEDS ORDERED: PATIENT'S OWN MEDICATION (NON-FORMULARY) (Efavirenz/Emtricitab/Tenofovir 1 TAB) PO SCH (10:00)
[2017-04-26 10:05] LABS: ALBUMIN 2.9 g/dl (3.4-5.0); ANION GAP 9 (8-16); BLOOD UREA NITROGEN 16 mg/dL (7-18); CALCIUM 7.9 mg/dL (8.5-10.1); CHLORIDE 107 mmol/L (98-107); CO2 25 mmol/L (21-32); CREATININE 0.9 mg/dL (0.7-1.3); GLUCOSE,RANDOM 92 mg/dL (74-106); POTASSIUM 4.1 mmol/L (3.5-5.1); SGOT/AST 19 U/L (15-37); SGPT/ALT 16 U/L (12-78); SODIUM 141 mmol/L (136-145); TOT PROT 6.4 g/dl (6.4-8.2)
[2017-04-26] MEDS: PRENATAL VITAMINS W/ FOLIC ACID TABLET (FP) PO SCH (10:06)
[2017-04-26] MEDS: EFAVIRENZ 600 MG TABLET PO SCH (10:06)
[2017-04-26] MEDS: EMTRICITABINE 200MG/TENOFOVIR 300MG PO SCH (10:06)
[2017-04-26] MEDS: NICOTINE 21 MG/24 HOURS TOPICAL PATCH TD SCH (10:06)
[2017-04-26] MEDS: HYDROCORTISONE 1% TOPICAL CREAM 30 GM TUBE TP PRN ×2 (10:06→22:25)
[2017-04-26 10:13] LABS: ALK PHOS 118 U/L (45-117); BILIRUBIN,TOTAL 0.4 mg/dL (0.2-1.0)
[2017-04-26] MEDS ORDERED: PNEUMOC 13-VAL CONJ-DIP CRM/PF 0.5 ML DISP.SYRIN IM ONE (12:00)
[2017-04-26] MEDS ORDERED: FLU VACCINE QUAD 60 MCG/0.5 ML (MDV 17-18) IM ONE (12:00)
--- NOTE | 2017-04-26 12:01 | CONSULT ---
[facility] Psychiatric Consult - Data Date of interview: 04/26/17 Admission source: [facility] Identifying data: Approached patient for psychiatric interview.Mr Santiago refused." I don't have psychiatric problems.I have nothing to discuss with psychiatrists." Nursing staff is made aware.
--- NOTE | 2017-04-26 12:33 | PN ---
S CIWA - CIWA Score Nausea/Vomitin-No Nausea/No Vomiting Muscle Tremors: 3 Anxiety: 4-Mod. Anxious/Guarded Agitation: 3 Paroxysmal Sweats: 2 Orientation: 2-Disoriented Date<2 days Tacttile Disturbances: 2-Mild Itch/Numbness/Burn Auditory Disturbances: 0-None Visual Disturbances: 2-Mild Sensitivity Headache: 0-None Present CIWA-Ar Total Score: 18 BHS Progress Note (SOAP) Subjective: Anxious, Fatigue, Sweating, Tremors. Objective: PT. A & O X 2 (UNCERTAIN ABOUT CURRENT DAY/ DATE). NO ACUTE DISTRESS. 04/26/17 12:36 Vital Signs Temperature 97.1 F L 04/26/17 09:39 Pulse Rate 72 04/26/17 09:39 Respiratory Rate 16 04/26/17 09:39 Blood Pressure 119/68 04/26/17 09:39 O2 Sat by Pulse Oximetry (%) Laboratory Tests 04/25/17 04/26/17 04/26/17 23:10 07:30 07:30 WBC 6.9 D RBC 4.51 Hgb 13.4 Hct 42.8 MCV 95.0 MCH 29.8 MCHC 31.3 L RDW 12.8 Plt Count 291 D MPV 8.4 Sodium 141 Potassium 4.1 Chloride 107 Carbon Dioxide 25 Anion Gap 9 BUN 16 D Creatinine 0.9 Creat Clearance w eGFR > 60 Random Glucose 92 Calcium 7.9 L Total Bilirubin 0.4 D AST 19 ALT 16 D Alkaline Phosphatase 118 H Total Protein 6.4 Albumin 2.9 L Urine Color Yellow Urine Appearance Clear Urine pH 5.0 Ur Specific [place] 1.024 Urine Protein Negative Urine Glucose (UA) 1+ H Urine Ketones Negative Urine Blood Negative Urine Nitrite Negative Urine Bilirubin Negative Urine Urobilinogen Negative Ur Leukocyte Esterase Negative RPR Titer 04/26/17 07:30 WBC RBC Hgb Hct MCV MCH MCHC RDW Plt Count MPV Sodium Potassium Chloride Carbon Dioxide Anion Gap BUN Creatinine Creat Clearance w eGFR Random Glucose Calcium Total Bilirubin AST ALT Alkaline Phosphatase Total Protein Albumin Urine Color Urine Appearance Urine pH Ur Specific [place] Urine Protein Urine Glucose (UA) Urine Ketones Urine Blood Urine Nitrite Urine Bilirubin Urine Urobilinogen Ur Leukocyte Esterase RPR Titer Nonreactive LABS NOTED. Assessment: 04/26/17 12:36 WITHDRAWAL SYMPTOMS. Plan: CONTINUE DETOX. INCREASE DAILY PO FLUID INTAKE.
[2017-04-26] MEDS: THIAMINE HCL 100 MG TABLET (FP) PO SCH (22:25)
[2017-04-27] MEDS: chlordiazePOXIDE HCL 25 MG CAPSULE PO SCH ×2 (06:32→10:55)
[2017-04-27] MEDS: PRENATAL VITAMINS W/ FOLIC ACID TABLET (FP) PO SCH (10:52)
[2017-04-27] MEDS: EFAVIRENZ 600 MG TABLET PO SCH (10:52)
[2017-04-27] MEDS: EMTRICITABINE 200MG/TENOFOVIR 300MG PO SCH (11:15)
[2017-04-27] MEDS: NICOTINE 21 MG/24 HOURS TOPICAL PATCH TD SCH (11:15)
--- NOTE | 2017-04-27 12:21 | EKG ---
Test Reason : Blood Pressure : / mmHG Vent. Rate : 079 BPM Atrial Rate : 079 BPM P-R Int : 152 ms QRS Dur : 076 ms QT Int : 374 ms P-R-T Axes : 070 028 057 degrees QTc Int : 428 ms NORMAL SINUS RHYTHM NORMAL ECG WHEN COMPARED WITH ECG OF 16-MAR-2017 14:46, NO SIGNIFICANT CHANGE WAS FOUND Confirmed by KIMBERLYN SARAVIA MD ([id number]) on 04/27/2017 12:21:06 PM Referred By: Confirmed By:KIMBERLYN SARAVIA MD
--- NOTE | 2017-04-27 17:50 | PN ---
[facility] CIWA - CIWA Score Nausea/Vomitin-No Nausea/No Vomiting Muscle Tremors: 2 Anxiety: 5 Agitation: 4-Moderately Restless Paroxysmal Sweats: 1-Minimal Palms Moist Orientation: 2-Disoriented Date<2 days Tacttile Disturbances: 0-None Auditory Disturbances: 0-None Visual Disturbances: 2-Mild Sensitivity Headache: 0-None Present CIWA-Ar Total Score: 16 BHS Progress Note (SOAP) Subjective: Tremors, Anxious, Interrupted Sleep. Objective: PT. A & O X 2 (UNCERTAIN ABOUT CURRENT DAY / DATE). PT. OBSERVED AMBULATING ON UNIT. NO ACUTE DISTRESS. 04/27/17 17:51 Vital Signs Temperature 97.4 F L 04/27/17 17:41 Pulse Rate 88 04/27/17 17:41 Respiratory Rate 18 04/27/17 17:41 Blood Pressure 117/71 04/27/17 17:41 O2 Sat by Pulse Oximetry (%) Laboratory Tests 04/25/17 04/26/17 04/26/17 23:10 07:30 07:30 WBC 6.9 D RBC 4.51 Hgb 13.4 Hct 42.8 MCV 95.0 MCH 29.8 MCHC 31.3 L RDW 12.8 Plt Count 291 D MPV 8.4 Sodium Potassium Chloride Carbon Dioxide Anion Gap BUN Creatinine Creat Clearance w eGFR Random Glucose Calcium Total Bilirubin AST ALT Alkaline Phosphatase Total Protein Albumin Urine Color Yellow Urine Appearance Clear Urine pH 5.0 Ur Specific [place] 1.024 Urine Protein Negative Urine Glucose (UA) 1+ H Urine Ketones Negative Urine Blood Negative Urine Nitrite Negative Urine Bilirubin Negative Urine Urobilinogen Negative Ur Leukocyte Esterase Negative RPR Titer Hepatitis C Antibody 0.1 04/26/17 04/26/17 07:30 07:30 WBC RBC Hgb Hct MCV MCH MCHC RDW Plt Count MPV Sodium 141 Potassium 4.1 Chloride 107 Carbon Dioxide 25 Anion Gap 9 BUN 16 D Creatinine 0.9 Creat Clearance w eGFR > 60 Random Glucose 92 Calcium 7.9 L Total Bilirubin 0.4 D AST 19 ALT 16 D Alkaline Phosphatase 118 H Total Protein 6.4 Albumin 2.9 L Urine Color Urine Appearance Urine pH Ur Specific [place] Urine Protein Urine Glucose (UA) Urine Ketones Urine Blood Urine Nitrite Urine Bilirubin Urine Urobilinogen Ur Leukocyte Esterase RPR Titer Nonreactive Hepatitis C Antibody LABS NOTED. Assessment: 04/27/17 17:51 WITHDRAWAL SYMPTOMS. Plan: CONTINUE DETOX.
[2017-04-27] MEDS: chlordiazePOXIDE 5 MG CAPSULE PO SCH ×2 (18:28→22:36)
[2017-04-27] MEDS: THIAMINE HCL 100 MG TABLET (FP) PO SCH (22:36)
[2017-04-28] MEDS: chlordiazePOXIDE 5 MG CAPSULE PO SCH ×2 (05:45→10:23)
[2017-04-28] MEDS: PRENATAL VITAMINS W/ FOLIC ACID TABLET (FP) PO SCH (10:23)
[2017-04-28] MEDS: NICOTINE 21 MG/24 HOURS TOPICAL PATCH TD SCH (10:23)
[2017-04-28] MEDS: EFAVIRENZ 600 MG TABLET PO SCH (10:23)
[2017-04-28] MEDS: EMTRICITABINE 200MG/TENOFOVIR 300MG PO SCH (10:23)
[2017-04-28] MEDS: chlordiazePOXIDE HCL 10 MG CAPSULE PO SCH ×2 (17:13→23:03)
[2017-04-28] MEDS: THIAMINE HCL 100 MG TABLET (FP) PO SCH (23:03)
[2017-04-29] MEDS: chlordiazePOXIDE HCL 10 MG CAPSULE PO SCH (06:07)
[2017-04-29 06:20] VITALS: BP 125/78; PULSE 84; TEMP 98.2
[2017-04-29] MEDS: PRENATAL VITAMINS W/ FOLIC ACID TABLET (FP) PO SCH (09:53)
[2017-04-29] MEDS: NICOTINE 21 MG/24 HOURS TOPICAL PATCH TD SCH (09:53)
[2017-04-29] MEDS: EFAVIRENZ 600 MG TABLET PO SCH (09:53)
[2017-04-29] MEDS: EMTRICITABINE 200MG/TENOFOVIR 300MG PO SCH (09:53)
--- NOTE | 2017-04-29 17:49 | DS ---
[facility] Detox Discharge Summary Admission Date: 04/25/17 Discharge Date: 04/29/17 - History Present History: Alcohol Dependence, Cocaine Dependence Additional Comments: PATIENT GOING HOME. PATIENT ADVISED TO CONSIDER LOCAL 12-STEP / NA / AA OUTPATIENT SUPPORT GROUP PROGRAMS FOR AFTERCARE. PATIENT WAS DISCHARGED FROM DETOX UNIT IN STABLE MEDICAL CONDITION. Pertinent Past History: Nicotine Dependence, HIV, Dehydration, Skin Pruritus. - Physical Exam Results Vital Signs: Vital Signs Temperature 98.2 F 04/29/17 06:19 Pulse Rate 84 04/29/17 06:19 Respiratory Rate 18 04/29/17 06:19 Blood Pressure 125/78 04/29/17 06:19 O2 Sat by Pulse Oximetry (%) Pertinent Admission Physical Exam Findings: WITHDRAWAL SYMPTOMS. Laboratory Tests 04/25/17 04/26/17 04/26/17 23:10 07:30 07:30 WBC 6.9 D RBC 4.51 Hgb 13.4 Hct 42.8 MCV 95.0 MCH 29.8 MCHC 31.3 L RDW 12.8 Plt Count 291 D MPV 8.4 Sodium Potassium Chloride Carbon Dioxide Anion Gap BUN Creatinine Creat Clearance w eGFR Random Glucose Calcium Total Bilirubin AST ALT Alkaline Phosphatase Total Protein Albumin Urine Color Yellow Urine Appearance Clear Urine pH 5.0 Ur Specific [place] 1.024 Urine Protein Negative Urine Glucose (UA) 1+ H Urine Ketones Negative Urine Blood Negative Urine Nitrite Negative Urine Bilirubin Negative Urine Urobilinogen Negative Ur Leukocyte Esterase Negative RPR Titer Hepatitis C Antibody 0.1 04/26/17 04/26/17 07:30 07:30 WBC RBC Hgb Hct MCV MCH MCHC RDW Plt Count MPV Sodium 141 Potassium 4.1 Chloride 107 Carbon Dioxide 25 Anion Gap 9 BUN 16 D Creatinine 0.9 Creat Clearance w eGFR > 60 Random Glucose 92 Calcium 7.9 L Total Bilirubin 0.4 D AST 19 ALT 16 D Alkaline Phosphatase 118 H Total Protein 6.4 Albumin 2.9 L Urine Color Urine Appearance Urine pH Ur Specific [place] Urine Protein Urine Glucose (UA) Urine Ketones Urine Blood Urine Nitrite Urine Bilirubin Urine Urobilinogen Ur Leukocyte Esterase RPR Titer Nonreactive Hepatitis C Antibody LABS NOTED. - Treatment Hospital Course: Detox Protocol Followed, Detoxed Safely, Responded well, Discharged Condition Good Patient has Accepted a Rehab Referral to: PT GOING HOME, ADVISED TO CONSIDER LOCAL 12-STEP/NA/AA SUPPORT GROUPS. - Medication Discharge Medications: Ambulatory Orders Efavirenz/Emtricitab/Tenofovir [Atripla -] 1 tab PO DAILY 02/23/17 - Diagnosis (1) Alcohol dependence with uncomplicated withdrawal Status: Acute (2) Dehydration Status: Acute (3) Skin pruritus Status: Acute (4) HIV (human immunodeficiency virus infection) Status: Chronic (5) Marijuana dependence Status: Chronic (6) Nicotine dependence Status: Chronic Qualifiers: Nicotine product type: cigarettes Substance use status: in withdrawal Qualified Code(s): F17.213 - Nicotine dependence, cigarettes, with withdrawal (7) Crack cocaine use Status: Chronic - AMA Did Patient Leave Against Medical Advice: No
== END 2017-04-29 09:05 | disposition home or self-care (01) | DRG 774 ==
LOC: YASAS 14:03 → Y3N 17:40
PROVIDERS: ADMIT Internal Medicine; ATTEND Internal Medicine
PROC: HZ2ZZZZ Detoxification Services for Substance Abuse Treatment (ICD-10-PCS; principal; 2017-04-25)
DX: F10.230 Alcohol dependence with withdrawal, uncomplicated (principal); F12.20 Cannabis dependence, uncomplicated; F14.90 Cocaine use, unspecified, uncomplicated; F17.210 Nicotine dependence, cigarettes, uncomplicated; Z21 Asymptomatic human immunodeficiency virus [HIV] infection status; L29.8 Other pruritus; E86.0 Dehydration
CPT/HCPCS: 36415; 80053; 81003; 85027; 86593; 86803; 90670; 90688; 93005; 93010

== ENCOUNTER 2018-09-30 12:22 | Inpatient (IN) | payer OTHER | END 2018-10-04 09:30 | disposition home or self-care (01) | LOC: YASAS 12:22 → Y6N 16:01 ==